=== PATIENT | male | born 1955 | race Caucasian/White ===

== ENCOUNTER 2024-11-03 10:22 | Emergency (ER) | payer OTHER ==
[~2024-11-03] VITALS: Ht 167.6 cm; Wt 95.3 kg
[2024-11-03] MEDS ORDERED: NIFE30TA91 PO (10:33)
[2024-11-03] MEDS ORDERED: METO50TA16 PO (10:33)
[2024-11-03] MEDS ORDERED: CLON0.1T PO (11:22)
[2024-11-03 11:32] VITALS: BP 145/91; TEMP 98.1; O2SAT 98
== END 2024-11-03 11:33 | disposition home or self-care (01) ==
LOC: ER 10:22
DX: I10 Essential (primary) hypertension (principal); E88.810 Metabolic syndrome; Z79.899 Other long term (current) drug therapy; Z90.49 Acquired absence of other specified parts of digestive tract
CPT/HCPCS: A4606; A4663

== ENCOUNTER 2025-10-12 23:28 | Emergency (ER) | payer MEDICARE, OTHER ==
[~2025-10-12] VITALS: Ht 170.2 cm; Wt 93.9 kg
[~2025-10-12 23:28] MED LIST: CLON0.1T PO; METO50TA16 PO; NIFE-73 PO
[2025-10-12 23:34] VITALS: BP 103/66
[2025-10-12 23:57] LABS: *BILIRUBIN,URIN NEGATIVE (NEGATIVE); *BLOOD, URINE 3+ (NEGATIVE); *CLARITY,URINE SLIGHTLY CLOUDY (CLEAR); *COLOR,URINE LIGHT YELLOW (YELLOW); *KETONES,URINE NEGATIVE (NEGATIVE); *PROTEIN,URINE TRACE (NEGATIVE); *UROBILINOGEN,URINE 0.2 E.U./dl (NORMAL); LEUKOCYTE ESTERASE ,URINE 3+ (NEGATIVE); NITRITE, URINE NEGATIVE (NEGATIVE); UGLUCOSE NEGATIVE (NEGATIVE)
[2025-10-13 00:09] LABS: PLATELET COUNT (AUTO) 225 K/uL (152-348); RED BLOOD CELL COUNT(AUTO) 4.57 MIL/uL (4.06-5.63); RED CELL DISTRIBUTION WIDTH 14.1 % (12.1-16.2); WHITE BLOOD COUNT (AUTO) 25.3 K/uL (3.6-10.2)
[2025-10-13 00:15] LABS: CREATININE 1.3 mg/dL (0.6-1.3); SODIUM SERUM 138 mmol/L (136-145); UREA NITROGEN, BLOOD 18 mg/dL (7-18)
[2025-10-13 00:21] LABS: ASPARTATE AMINOTRANSFERASE 16 U/L (15-37); TOTAL PROTEIN, SERUM 7.0 g/dL (6.4-8.2)
[2025-10-13 00:34] LABS: SQUAMOUS EPITHELIAL CELL,UR FEW /HPF (NONE SEEN)
[2025-10-13] MEDS ORDERED: CEPH500C2 PO (00:52)
[2025-10-13 01:03] VITALS: BP 109/65; O2SAT 97
== END 2025-10-13 01:04 | disposition home or self-care (01) ==
LOC: ER 23:31
DX: N10 Acute pyelonephritis (principal); I10 Essential (primary) hypertension; N30.91 Cystitis, unspecified with hematuria; Z79.899 Other long term (current) drug therapy; Z87.442 Personal history of urinary calculi; Z90.49 Acquired absence of other specified parts of digestive tract; Z86.2 Personal history of diseases of the blood and blood-forming organs and certain disorders involving the immune mechanism
CPT/HCPCS: 36415; 83690; 84484; 84703; 85025; 85651; 85730; 87077; 87086; A4606; A4663